=== PATIENT | female | born 1980 | race Caucasian/White ===

== ENCOUNTER → 2023-11-29 | Outpatient (CLI) | payer BC ==
[~2023-11-29] MED LIST: RALT400 PO; TRUVADA 200 MG1 EACH PO
[2023-12-03 23:09] LABS: QUANTIFERON MITOGEN MINUS NIL >10.00 IU/mL; QUANTIFERON NIL 0.01 IU/mL; QUANTIFERON PLUS TB1 MINUS NIL 0.27 IU/mL (<=0.34); QUANTIFERON PLUS TB2 MINUS NIL 0.22 IU/mL (<=0.34)
== END | disposition home or self-care (01) ==
LOC: LAB SHORT 18:56 → LAB 18:56
PROVIDERS: Family Medicine
DX: Z11.1 Encounter for screening for respiratory tuberculosis (principal)
CPT/HCPCS: 86480

== ENCOUNTER → 2024-03-08 | Outpatient (CLI) | payer BC ==
[2024-03-11 16:35] LABS: HEPATITIS A ANTIBODY, IGM Negative (Negative); HEPATITIS B CORE ANTIBODY, IGM Negative (Negative); HEPATITIS B SURFACE ANTIGEN Negative (Negative); HEPATITIS C AB CIA INTERP Negative (Negative); HEPATITIS C ANTIBODY CIA INDEX 0.14 IV
== END ==
LOC: LAB 19:38 → LAB SHORT 19:38
PROVIDERS: Family Medicine
DX: Z11.59 Encounter for screening for other viral diseases (principal)
CPT/HCPCS: 80074

== ENCOUNTER → 2024-07-05 | Outpatient (CLI) | payer BC ==
[2024-07-08 17:58] LABS: VARICELLA-ZOSTER VIRUS AB,IGG 10.7 S/CO
[2024-07-09 19:09] LABS: HEPATITIS B SURFACE ANTIBODY 249.51 IU/L
== END ==
LOC: LAB SHORT 19:03 → LAB 19:03
PROVIDERS: Family Medicine
DX: Z01.84 Encounter for antibody response examination (principal)
CPT/HCPCS: 86735; 86762; 86765; 86787